=== PATIENT | male | born 1990 | race Caucasian/White ===

== ENCOUNTER 2023-06-06 18:43 | Emergency (ER) | payer OTHER ==
[~2023-06-06] VITALS: Ht 172.7 cm; Wt 100.0 kg
[2023-06-06 18:47] VITALS: TEMP 98.2
[2023-06-06 21:36] VITALS: BP 121/81; PULSE 80
== END 2023-06-06 21:50 | disposition home or self-care (01) ==
LOC: COL.ER 18:43
DX: S61.431A Puncture wound without foreign body of right hand, initial encounter (principal); W29.8XXA Contact with other powered hand tools and household machinery, initial encounter